=== PATIENT | female | born 1965 | race Caucasian/White ===

== ENCOUNTER 2023-03-20 15:06 | Outpatient (REF) | payer MEDICARE, SELFPAY | END 2023-03-20 15:07 | disposition home or self-care (01) | LOC: HO.SH 15:06 | PROVIDERS: Visit Provider Internal Medicine | DX: Z01.118 Encounter for examination of ears and hearing with other abnormal findings (principal); H90.3 Sensorineural hearing loss, bilateral | CPT/HCPCS: 92557; 92567 ==

== ENCOUNTER 2023-10-12 13:12 | Outpatient (AMB) | payer MEDICARE, SELFPAY ==
--- NOTE | 2023-10-12 13:25 | A.OFFPC_ITS ---
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 Agents' Records Clerk Required: No Accompanied by: Self / Same As Patient Allergies melatonin Allergy (Severe, Verified 10/12/23 13:34) Unconscious pregabalin Allergy (Severe, Verified 10/12/23 13:34) Vomiting doxycycline Allergy (Unknown, Verified 10/12/23 13:34) Vomiting Tobacco use date assessed: 10/12/23 Dental Screening Dental Screen Date: 10/12/23 Did you have a dental visit in the last 12 months?: Yes Did you have a dental problem in the last 6 months where you did not have access to dental care?: No Was dental information given to patient?: Patient has dentist HPI HPI Comments History of Present Illness Details The patient is a 58-year-old female with a past medical history of anxiety, migraines, hyperlipidemia, hypothyroid, rheumatoid arthritis, breast cancer presenting for follow-up Anxiety: She was started on Prozac last year. Tolerated it but stopped. 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 Not sleeping well Rheumatoid arthritis: Dr. Ventura in [place]. On Humira. Has tried Enbrel and simponi in the past. Increased lower back pain for past few months. Cramping, painful numbness in lower extremities in toes. Worse at night. Prior xray with loss of height, evidence of stenosis through rheumatology. Continue to have visible swellling of the legs and feet with fasciculations Hypothyroid: On levothyroxine 112 mcg daily. Continues to have multiple headaches per week. Using prn fioricet which she tries to avoid. MRI brain was normal. Willling to try aimovig or similar CV: In spironolactone. Heme-Onc: Status post bilateral mastectomy for right-sided lobular carcinoma with limited axillary exploration. She had positive margins on the right. Her surgeon recommended XRT, tamoxifen. Two thousand seven. Two thousand nine she had OVIDIO with BSO Sees tag maker ROS see HPI PHYSICAL EXAM: GENERAL: Alert and oriented x 3. NAD EYES: EOMI. Anicteric. HENT: Moist mucous membranes. No scleral icterus. No cervical lymphadenopathy. LUNGS: Clear to auscultation bilaterally. CARDIOVASCULAR: Regular rate and rhythm. No murmur. No JVD. ABDOMEN: Soft, non-tender +bs EXTREMITIES: No edema. Non-tender. SKIN: No rashes or lesions. Warm. NEUROLOGIC: No focal neurological deficits. CN II-XII grossly intact PSYCHIATRIC: Cooperative. Appropriate mood and affect [facility] Medical History (Updated 10/12/23 @ 14:58 by Shelley Banks MD) Breast cancer Sinusitis Rheumatoid arthritis Hypothyroidism Hyperlipidemia Migraine Chronic neck pain Chronic low back pain Acne Anxiety Surgical History (Updated 10/12/23 @ 13:53 by Marcella Adam CMA) Hx of BSO (bilateral salpingo-oophorectomy) History of total abdominal hysterectomy History of bilateral mastectomy Family History (Updated 10/12/23 @ 13:55 by Marcella Adam CMA) Father Alcoholism Hypertension Sister Depression Sister Alcoholism Social History (Updated 10/12/23 @ 13:45 by Marcella Adam CMA) Household Members: Spouse Housing: House Are you a primary acute care nurse practitioner to a significant other at home: No Do you presently have visiting nurse or other home services: No Alcohol intake: current Alcohol intake frequency: holidays/special occasions only Alcohol type: wine Patient Tobacco Use Status: Never used Tobacco e-Cigarette/Vaping Use: Never Used service: No Current occupational status: employed Current occupation: [employer] Current occupational exposures/hazards: No Sexual orientation: Straight/Heterosexual Gender identity: Female Cognitive needs: No Hearing needs: Yes (hearing concerns) Vision needs: Yes (sees eye doctor, vision changes) Questionnaire PHQ-9 Over the last 2 weeks, how often have you been bothered by any of the following problems? 1. Little interest or pleasure in doing things: not at all 2. Feeling down, depressed, or hopeless: not at all 3. Trouble falling or staying asleep, or sleeping too much: not at all 4. Feeling tired or having little energy: not at all 5. Poor appetite or overeating: not at all 6. Feeling bad about yourself - or that you are a failure or have let yourself or your family down: not at all 7. Trouble concentrating on things, such as reading the newspaper or watching television: not at all 8. Moving or speaking so slowly that other people could have noticed. Or the opposite - being so fidgety or restless that you have been moving around a lot more than usual: not at all 9. Thoughts that you would be better off or of hurting yourself in some way: not at all Total score: 0 Depression Screening Interpretation: Negative (neg) Depression Screening Done: Yes 41707 - PHQ-9 Billing: Yes Source: Developed by Drs. Rg Joya, Carrie Hernandez, David Braswell and colleagues, with an educational michelle from [employer]. Thrive Questionnaire Date Thrive assessed: 10/12/23 I am a: Patient What is your living situation today?: I have a steady place to live Within the past 12 months, did the food you bought not last and you didn't have the money to get more?: Never true Within the past 12 months, did you worry whether your food would run out before you got money to buy more?: Never true Do you have trouble paying for medicines?: No Do you have trouble getting transportation to medical appointments?: No Do you have trouble paying your heating and electricity bill?: No Do you have trouble taking care of your child, family member or friend?: No Do you have trouble with day-to-day activities such as bathing, preparing meals, shopping, managing finances, etc.?: No Are you currently unemployed and looking for a job?: No Are you interested in more education?: No Please select the resources that you would like help with: None Currently or been in a relationship where the following occur: No concerns reported THRIVE Score: 0 BRAXTON-7 AMB Questionnaire BRAXTON-7 Date BRAXTON - 7 assessed: 10/12/23 Feeling nervous, anxious, or on edge: 3 = Nearly every day Not being able to stop or control worryin = Nearly every day Worrying too much about different things: 3 = Nearly every day Trouble relaxin = Nearly every day Being so restless that it is hard to sit still: 3 = Nearly every day Becoming easily annoyed or irritable: 3 = Nearly every day Feeling afraid as if something awful might happen: 0 = Not at all Total BRAXTON-7 score (0-4 normal; 5-9 mild; 10-14 moderate; 15-21 severe): 18 Source: Developed by Drs. Rg Joya, Carrie Hernandez, David Braswell and colleagues, with an educational michelle from [employer]. Physical exam (Primary Care) Vital Signs: Last Vital Signs Pulse 68 10/12/23 13:26 Resp 13 10/12/23 13:26 BP 124/72 10/12/23 13:26 Pulse Ox 93 10/12/23 13:26 Oxygen Delivery Method Room Air 10/12/23 13:26 BMI result Body Mass Index 24.2 Tobacco/Smoking Status: Tobacco use Status Tobacco use date assessed 10/12/23 10/12/23 13:45 Patient Tobacco Use Status Never used Tobacco 10/12/23 13:45 e-Cigarette/Vaping Use Never Used 10/12/23 13:45 PHQ-9: PHQ-9 Score PHQ-9: Total score 0 10/12/23 13:45 Depression Screening Interpretation: Negative (neg) Thrive Assessment: Date of Thrive Assessment Date Thrive assessed 10/12/23 10/12/23 13:45 Currently or been in a relationship where the following occur: No concerns reported Assessment and Plan Assessment & Plan (1) Hyperlipidemia: Code(s): E78.5 - Hyperlipidemia, unspecified Qualifiers: Hyperlipidemia type: pure hypercholesterolemia Qualified Code(s): E78.00 - Pure hypercholesterolemia, unspecified Plan: Monitor labs. 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 xray changes. MRI ordered (5) Weight gain: Code(s): R63.5 - Abnormal weight gain Plan: demetrius sent Orders: Orders Complete Blood Count Auto Diff Today E03.9 - Hypothyroidism, unspecified, E78.5 - Hyperlipidemia, unspecified, R25.2 - Cramp and spasm, Z13.0 - Encounter for screening for diseases of the blood and blood-forming organs and certain disorders involving the immune mechanism Comprehensive Met. Panel Today E03.9 - Hypothyroidism, unspecified, E78.5 - Hyperlipidemia, unspecified, R25.2 - Cramp and spasm, Z13.0 - Encounter for screening for diseases of the blood and blood-forming organs and certain disorders involving the immune mechanism Magnesium Today E03.9 - Hypothyroidism, unspecified, E78.5 - Hyperlipidemia, unspecified, R25.2 - Cramp and spasm, Z13.0 - Encounter for screening for diseases of the blood and blood-forming organs and certain disorders involving the immune mechanism Hemoglobin A1c Today E03.9 - Hypothyroidism, unspecified, E78.5 - Hyperlipidemia, unspecified, R25.2 - Cramp and spasm, Z13.0 - Encounter for screening for diseases of the blood and blood-forming organs and certain disorders involving the immune mechanism MR lumbar spine wo con Today M54.16 - Radiculopathy, lumbar region, R25.2 - Cramp and spasm TSH reflex Free T4 Today E03.9 - Hypothyroidism, unspecified, E78.5 - Hyperlipidemia, unspecified, R25.2 - Cramp and spasm, Z13.0 - Encounter for screening for diseases of the blood and blood-forming organs and certain disorders involving the immune mechanism Vitamin B12 and Folate Today E03.9 - Hypothyroidism, unspecified, E78.5 - Hyperlipidemia, unspecified, R25.2 - Cramp and spasm, Z13.0 - Encounter for screening for diseases of the blood and blood-forming organs and certain disorders involving the immune mechanism Medications: New zolpidem (Ambien) 5 mg PO BEDTIME 30 tabs 3RF zpztntsfdm-tqpsmdhydtlcm-chnq 50-325-40 mg 1 cap PO Q4-6H 28 days PRN 84 caps 0RF headache spironolactone 50 mg PO DAILY 90 tabs 3RF erenumab-aooe (Aimovig Autoinjector) 70 mg subcut .monthly 3 mL 3RF G43.909 - Migraine, unspecified, not intractable, without status migrainosus semaglutide (weight loss) (Demetrius) administer weeks 1 through 4 of therapy 0.25 mg (0.5 mL) subcut QWEEK 2 mL 0RF E78.00 - Pure hypercholesterolemia, unspecified, R63.5 - Abnormal weight gain levothyroxine 112 mcg PO DAILY 90 caps 3RF Refilled acyclovir 400 mg PO TID 5 days PRN 90 tabs 1RF cold sore Coding Level of Care Code Est Pt Level 5 (58762) Diagnoses Pure hypercholesterolemia E78.00 Hyperlipidemia type: pure hypercholesterolemia Rheumatoid arthritis involving multiple sites with positive rheumatoid factor M05.79 Rheumatoid arthritis location: multiple sites Rheumatoid factor presence: with rheumatoid factor 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
[2023-10-12 13:26] VITALS: BP 124/72; PULSE 68; RESP 13; O2SAT 93; BMI 24.2
== END 2023-10-12 14:28 | disposition home or self-care (01) ==
PROVIDERS: Visit Provider Internal Medicine
DX: E78.00 Pure hypercholesterolemia, unspecified (principal); M05.79 Rheumatoid arthritis with rheumatoid factor of multiple sites without organ or systems involvement; E06.3 Autoimmune thyroiditis; M54.16 Radiculopathy, lumbar region; R63.5 Abnormal weight gain
CPT/HCPCS: 99214

== ENCOUNTER 2023-10-12 14:38 | Outpatient (REF) | payer MEDICARE, SELFPAY ==
[2023-10-12 17:30] LABS: MANUAL DIFF FLAG NO
[2023-10-12 17:34] LABS: Basophils Absolute Auto 0.1 X10*3/uL (0.0-0.2); Basophils Percent Auto 1.3 % (0-2); Eosinophils Absolute Auto 0.3 X10*3/uL (0.0-0.4); Eosinophils Percent Auto 3.4 % (0-4); Hematocrit 38.1 % (37.0-47.0); Hemoglobin 12.8 g/dl (12.0-16.0); Imm Gran Abs Auto 0.01 X10*3/uL (0.00-0.03); Imm Gran Pct Auto 0.1 % (0.0-0.4); Lymphocytes Percent Auto 36.7 % (20-40); Mean Corpuscular HGB Conc 33.6 g/dl (31.0-35.0); Mean Corpuscular Hemoglobin 31.2 pg (27.0-33.0); Mean Corpuscular Volume 92.9 fL (80.0-98.0); Mean Platelet Volume 10.3 fL (9.4-12.3); Monocytes Absolute Auto 0.7 X10*3/uL (0.1-1.2); Monocytes Percent Auto 7.9 % (2-11); Neutrophils Absolute Auto 4.2 x10*3/uL (2.0-8.3); Neutrophils Percent Auto 50.6 % (45-73); Platelet Count 313 X10*3/uL (160-400); Red Cell Distribution Width 12.6 % (11.0-16.0); White Blood Count 8.3 X10*3/uL (4.8-10.8)
[2023-10-12 17:48] LABS: Estimated Average Glucose 103 mg/dL; Hemoglobin A1c % 5.2 % (<6.0)
[2023-10-12 17:52] LABS: Alanine Aminotransferase 15 U/L (0-31); Albumin Level 4.2 g/dL (3.5-5.0); Alkaline Phosphatase 77 U/L (39-117); Anion Gap 10 (12-20); Aspartate Amino Transferase 17 U/L (5-31); Bilirubin Total 0.1 mg/dL (0.0-1.0); Blood Urea Nitrogen 19 mg/dL (9-16); Calcium 9.3 mg/dL (8.4-10.2); Carbon Dioxide 28 mmol/L (22-29); Chloride 105 mmol/L (96-108); Estimated Glomerular Filt Rate > 60; Glucose Random 94 mg/dL (60-115); Magnesium 2.1 mg/dL (1.6-2.6); Potassium 4.2 mmol/L (3.3-5.1); Sodium 139 mmol/L (135-145); Total Protein 7.2 g/dL (6.5-8.0)
[2023-10-12 18:10] LABS: TSH reflex Free T4 6.07 uIU/mL (0.32-4.0)
[2023-10-12 18:24] LABS: Folate 10.9 ng/mL (> or = 4.0); Vitamin B12 290 pg/mL (200-900)
[2023-10-12 18:51] LABS: Free T4 (Free Thyroxine) 0.77 ng/dL (0.71-1.85)
== END 2023-10-12 14:39 | disposition home or self-care (01) ==
LOC: HO.WFDLDS 14:38
PROVIDERS: Visit Provider Internal Medicine
DX: Z13.0 Encounter for screening for diseases of the blood and blood-forming organs and certain disorders involving the immune mechanism (principal); Z13.1 Encounter for screening for diabetes mellitus; E03.9 Hypothyroidism, unspecified; E78.5 Hyperlipidemia, unspecified; R25.2 Cramp and spasm
CPT/HCPCS: 36415; 80053; 82607; 82746; 83036; 83735; 84439; 84443; 85025

== ENCOUNTER 2024-03-21 08:51 | Outpatient (AMB) | payer OTHER, SELFPAY ==
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
[2024-03-21 09:10] VITALS: BP 100/74; PULSE 75; RESP 14; O2SAT 98; BMI 26.2
--- OUTSIDE RECORDS SUMMARY | 2024-03-21 09:11 | XMS_ITS | Clinical Summary ---
Author Organization [facility] Address [address] [place] [address] Care Team Providers Care Wedger Machine Name Role Phone Ivania Bello Primary Care Provider [phone] Medications Medication Sig Dispensed Refills Start Date End Date Status acyclovir (ZOVIRAX) 400 mg tabletIndications:Recu rrent cold sores TAKE 1 TABLET BY MOUTH 3 TIMES A DAY 15 tablet 1 06/16/2022 Active spironolactone (ALDACTONE) 50 MG tabletIndications:Hype rtension, unspecified type TAKE 1 TABLET BY MOUTH EVERY DAY 30 tablet 1 08/07/2022 Active levothyroxine (SYNTHROID, LEVOTHROID) 112 MCG tabletIndications:Hypo thyroidism, unspecified type TAKE 1 TABLET BY MOUTH EVERY DAY 90 tablet 11/13/2022 Active Social History Tobacco Use Types Packs/Day Years Used Date Smoking Tobacco: Never Assessed Sex and Gender Information Value Date Recorded Sex Assigned at Not on file Gender Identity Not on file Sexual Orientation Not on file Plan of Treatment Health Maintenance Due Date Last Done Comments Hepatitis C Virus Screening 1965 HIV Screening 07/18/1976 DTaP/Tdap/Td Vaccines (1 - Tdap) 07/18/1982 Pneumococcal Vaccines 50+ (1 of 1 - PCV) 07/18/2013 Zoster (Shingles) Vaccine (1 of 2) 07/18/2013 COVID-19 Vaccine (2023-2 5 season) 2023 RSV Vaccine 60 years and old er and Patients (1 - 1-dose 75+ series) 07/18/2038 Hepatitis B Vaccines Aged Out No long er eligible based on patient's age to complete this topic Pneumococcal Vaccine: Pediat mikie (0-5 Years) and At-Risk Patients (6 to 49 Years) Aged Out No longer eligible b ased on patient's age to complete this topic Care Teams Wedger Machine Relationship Specialty Start Date End Date Ivania Bello DO [address] [address] PCP - General
--- OUTSIDE RECORDS SUMMARY | 2024-03-21 09:11 | XMS_ITS | Encounter Summary ---
Author Organization [facility] Address [address] [place] [address] Care Team Providers Care Chemical Engraver Name Role Phone Ivania Bello DO Primary Care Provider [phone] Reason for Visit * Reason Comments Medication Refill Encounter Details Date Type Department Care Team (Late st Contact Info) Description 07/11/2022 Refill [facility] Department of Internal Medicine [address] 1st [place] [phone] Ivania Bello DO [address] [place] [address] Recurrent cold sores Social History Tobacco Use Types Packs/Day Years Used Date Smoking Tobacco: Never Assessed Sex and Gender Information Value Date Recorded Sex Assigned at Not on file Gender Identity Not on file Sexual Orientation Not on file documented as of this encounter Plan of Treatment Not on file documented as of this encounter Visit Diagnoses Diagnosis Recurrent cold sores Herpes simplex without mention of complication documented in this encounter Care Teams Chemical Engraver Relationship Specialty Start Date End Date Ivania Bello DO [address] [place] [address] PCP - General documented as of this encounter
--- OUTSIDE RECORDS SUMMARY | 2024-03-21 09:11 | XMS_ITS | Encounter Summary ---
Author Organization [facility] Address [address] [place] [address] Care Team Providers Care Crystal Flat Grinder Name Role Phone Ivania Bello DO Primary Care Provider [phone] Reason for Visit * Reason Comments Medication Refill Encounter Details Date Type Department Care Team (Late st Contact Info) Description 11/05/2022 Refill [facility] Department of Internal Medicine [address] 1st [place] [phone] Ivania Bello DO [address] [place] [address] Hypertension, unspecified type Social History Tobacco Use Types Packs/Day Years Used Date Smoking Tobacco: Never Assessed Sex and Gender Information Value Date Recorded Sex Assigned at Not on file Gender Identity Not on file Sexual Orientation Not on file documented as of this encounter Plan of Treatment Not on file documented as of this encounter Visit Diagnoses Diagnosis Hypertension, unspecified type documented in this encounter Care Teams Crystal Flat Grinder Relationship Specialty Start Date End Date Ivania Bello DO [address] [place] [address] PCP - General documented as of this encounter
== END 2024-03-21 09:44 | disposition home or self-care (01) ==
PROVIDERS: PCP Internal Medicine; Visit Provider Internal Medicine
DX: E06.3 Autoimmune thyroiditis (principal); M54.16 Radiculopathy, lumbar region; F41.9 Anxiety disorder, unspecified

== ENCOUNTER → 2024-03-21 08:51 | Outpatient (BNVA) | payer OTHER, SELFPAY | PROVIDERS: PCP Internal Medicine; Visit Provider Internal Medicine | DX: E06.3 Autoimmune thyroiditis (principal); R63.5 Abnormal weight gain; M54.16 Radiculopathy, lumbar region; F41.9 Anxiety disorder, unspecified; Z51.81 Encounter for therapeutic drug level monitoring | CPT/HCPCS: 96127 ==

== ENCOUNTER 2024-03-21 09:58 | Outpatient (REF) | payer OTHER, SELFPAY ==
--- OUTSIDE RECORDS SUMMARY | 2024-03-21 10:43 | XMS_ITS | Clinical Summary ---
Author Organization [facility] Address [address] [place] [address] Care Team Providers Care Kosher Butcher Name Role Phone Ivania Bello Primary Care Provider [phone] Medications Medication Sig Dispensed Refills Start Date [...] age to complete this topic Care Teams Kosher Butcher Relationship Specialty Start Date End Date Ivania Bello DO [address] [address] PCP - General
--- OUTSIDE RECORDS SUMMARY | 2024-03-21 10:43 | XMS_ITS | Encounter Summary ---
Author Organization [facility] Address [address] [place] [address] Care Team Providers Care Philosophy Faculty Member Name Role Phone Ivania Bello DO Primary Care Provider [phone] Reason for Visit * Reason Comments Medication Refill Encounter Details Date Type Department Care Team (Late st Contact Info) Description 11/05/2022 Refill [facility] Department of Internal Medicine [address] 1st [place] [phone] Ivania Bello DO [address] [place] [address] Hypertension, unspecified type Social History Tobacco Use [...] type documented in this encounter Care Teams Philosophy Faculty Member Relationship Specialty Start Date End Date Ivania Bello DO [address] [place] [address] PCP - General documented as of this encounter
--- OUTSIDE RECORDS SUMMARY | 2024-03-21 10:43 | XMS_ITS | Encounter Summary ---
Author Organization [facility] Address [address] [place] [address] Care Team Providers Care Technical Designer Name Role Phone Ivania Bello DO Primary Care Provider [phone] Reason for Visit * Reason Comments Medication Refill Encounter Details Date Type Department Care Team (Late st Contact Info) Description 07/11/2022 Refill [facility] Department of Internal Medicine [address] [place] [phone] Ivania Bello DO [address] [place] [address] Recurrent cold sores Social History Tobacco Use [...] complication documented in this encounter Care Teams Technical Designer Relationship Specialty Start Date End Date Ivania Bello DO [address] [place] [address] PCP - General documented as of this encounter
--- OUTSIDE RECORDS SUMMARY | 2024-03-21 10:43 | XMS_ITS | Data Portability ---
Author Organization [facility], [address] Address [address] [place] [address] Assessment Encounter Date Assessment Date Assessment LastModified by Organization Details LastModified Time 06/25/2023 06/25/2023 Refer to H&P. Tx for cellulitis with PCN for 10 days. Came today for continued symptoms. Exam finding c/w Paronychia i/s/o of ingrown toenail which was slightly clipped. Referral to podiatry placed. [email or web address] Not available 06/25/2023 18:21:23 Plan of Treatment Reminders Order Date Submit Date Provider Last Modified By Organization Details Last Modified Time Details Appointments None recorded. Lab None recorded. Referral store loss prevention manager referral - Ingrown toenail with infection. 2023 024 [email or web address] Not available 18:32:52 Procedures None recorded. Surgeries None recorded. Imaging None recorded. Medication Orders penicillin V potassium 500 mg tablet 2023 024 EUFEMIA [facility] #[id number], [address] [place], [address], 17:56:34 ibuprofen 800 mg tablet 2023 024 [email or web address] [facility] #[id number], [address] [place], [address], 4 18:47:32 cephalexin 500 mg capsule 2023 024 ATHENAFAX [facility][id number], [address] [place], [address], 18:19:37 Patient TargetsNo targets recorded. Patient Instructions Encounter Date Encounter Id Patient Instructions Last Modified By Organization Details Last Modified Time 06/06/2023 [id number] Pt. advised to g o to ER if current Signs and symptoms worsen or if she has new onset s/s as discussed .pt advised to follow up with PCP if s/s do not resolve .May need Podiatry referral . [email or web address] Not available 06/06/2023 19:41:42 06/25/2023 [id number] foot pain: care instructions [email or web address] Not available 06/25/2023 18:13:15 You were seen today for toe pain. You ingrown toenail with infection. Recommendation as below: - Keflex 500 mg three times a day for 7 days. - you have a referral to Podiatry - Return if worsening symptoms or lack of improvement. [email or web address] Not available 06/25/2023 18:14:39 Reason for Referral Field Representative/Health Education Referral for Paro nychia of toe of left foot due to ingrown toenail Ingrown toenail with infection. Referring Physician: Vannessa Leon, Urgent Care, Encounter Date: 06/25/2023 Problems Name Problem SNOMED Code Status Onset Date Resolution Date Notes Provider Name and Address Organization Details Recorded Time Paronychia of toe of left foot due to ingrown toenail 467593807 Active 024 VANNESSA LEON MD [address] [place] [address] [facility] [place], [address] [facility] [place] - [facility] 18:12:59 Problem Notes None recorded. Procedures Surgical History Date Name Laterality Status Provider Name and Address Organization Details Recorded Time 06/06/2023 CAST SHOE completed Marielle Di PA - [facility] 06/06/2023 19:47:07 Imaging Results None recorded. Procedure Notes None recorded. Medical Equipment None Reported. Allergies Allergen ID Allergen Name Allergen Category Reaction Reaction Severity Criticality Documentation Date Start Date Code Code System Note Provider Name and Address Organization Details Recorded Time 258485 Lyrica medicatio n Not available Not available Not available 06/06/2023 11045 1 RxNorm Marielle Di co[place], [place] - [facility] 4 18:07:30 020550 Tylox medicatio n Not available Not available Not available 06/06/2023 15617 5 RxNorm Marielle Sevilla coleen [place] - [facility] 4 18:07:34 Medications Name Sig Start Date Stop Date Status Note LastModified by Organization Details LastModified Time ibuprofen 800 mg tablet Take 1 tablet twice a day by oral route as directed for 10 days, for celluliti s pain. 2023 active Not Available Not Available Not Avai lable penicillin V potassium 500 mg tablet Take 1 tablet every 8 hours by oral route as directed for 10 days, for celluliti s left foot. 06/24 completed Not Available Not Available Not Available cephalexin 500 mg capsule Take 1 capsule every 8 hours by oral route for 7 days. 2023 active Not Available Not Available Not Avai lable butabarbita l 100 mg tablet Take by oral route. 06/05 completed Not Available Not Available Not Available meclizine active Not Available Not Marita ilable Not Available levothyroxi ne 100 mcg capsule Take 1 capsule every day by oral route. active Not Available Not Available No t Available Vitals Date Recorded Body height Body mass index (BMI) Body weight Oxygen saturation Oxygen saturation in Arterial blood by Pulse oximetry Heart rate Respiratory rate Body temperature Systolic blood pressure Diastolic blood pressure Provider Name and Address Organization Details Last Updated DateTime 4 162.56 cm 22.3 kg/m2 38247.0 1 g 98 % 98 % 72 /min 18 /min 98.3 [degF] 102 mm[Hg] 60 mm[Hg] Marielle Sevilla PA - [facility] 4 18:11:36 Date Recorded Body height Body mass index (BMI) Body weight Oxygen saturation Oxygen saturation in Arterial blood by Pulse oximetry Heart rate Respiratory rate Body temperature Systolic blood pressure Diastolic blood pressure Provider Name and Address Organization Details Last Updated DateTime 4 162.56 cm 22.3 kg/m2 97427.0 1 g 100 % 100 % 80 /min 16 /min 98.4 [degF] 98 mm[Hg] 62 mm[Hg] Zara [place] - [facility] 17:55:04 Social History Question Answer Notes LastModified by Organizat ion Details LastModified Time Tobacco Smoking Status Never Smoker Marielle [facility] 06/06/2023 18:10:06 What Is Your Level Of Alcohol Consumption? Occasional Information not available 06/06/2023 Have You Had A Flu Shot This Season? Yes Information not available 06/25/2023 Have You Had Direct Contact, Or Contact During Intimacy, With Monkeypox Rash, Scabs, Or Body Fluids From A Person With Monkeypox? No Information not available 06/06/2023 What Was The Date Of Your Most Recent Tobacco Screening? 06/25/2023 Information not available 06/25/2023 Do You Use Any Illicit Or Recreational Drugs? No Information not available 06/06/2023 Have You Recently Traveled Abroad? No Information not available 06/06/2023 Do You Or Have You Ever Used Any Other Forms Of Tobacco Or Nicotine? No Information not available 06/06/2023 Sex: Unknown Functional Status None recorded. Mental Status None recorded. Family History Relationship Description Onset Age of this Age Resolved Age Notes LastModified by Organization Details LastModified Time Father No current problems or disability Not available 06/05 18:09:22 Mother No current problems or disability Not available 06/05 18:09:22 Medical History No medical history recorded. Gynecological History Statement/Question Response Is there any chance of ? No Obstetrics History GPAL:G 0 P 0 0 0 0 Past Encounters Encounter ID Performer Location Encounter Start Date Encounter Closed Date Diagnosis/Indication Diagnosis SNOMED-CT Code Diagnosis ICD10 Code Diagnosis [place] [id number] [place] [address] [address] 06/06/2023 18:03:37 06/07/2023 11:37:50 Cellulitis of left foot 8278379406 5327825 L03.116 [id number] [place] [address] [address] 06/25/2023 17:42:09 06/25/2023 18:16:23 Paronychia of toe of left foot due to ingrown toenail 770223143 L60.0 Health Concerns Section Related Observation LastModified by Organization Detai ls LastModified Time None Recorded Concern Status LastModified by Organization Details LastModified Time None Recorded Advance Directives Directive None Recorded Payers Encounter Date Sequence Insurance Name Policy Number Policy King Covered Member ID King Member ID Guarantor Name 06/06/2023 1 MEDICARE [place]: [facility] Tomasa Ross [id number] Tomasa Ross 06/25/2023 1 [place]IC[place]: [facility] Tomasa Ross [id number] Tomasa Ross Notes Date Note Type Note Provider Name and Address Organization Details Recorded Time 4 text/html ToesReported bypatient.source of patient informationIncreasing redness and swelling left great Toe after trimming nail short. with accidental injury to skin. Location:dorsal Quality:aching; burning; worsening Severity:moderate; pain level 6/10 Duration:4 days Timing:acute Context:skin injury Alleviating Factors:rest; elevation; limited weight bearing Aggravating Factors:sitting; standing; walking Associated Symptoms:no tingling; no catching/locking; no popping/clicking; no fever; no chills;swelling;redness;wa rmth Previous Surgery:none Prior Imaging:none Previous Injections:none Previous PT:none Joslyn Trinidad MD [address] [place], [address], [place] - [facility] 06/06/2023 19:50:05 4 text/html Foot/Ankle UCReported bypatient.Notes:Left toe ingrown toenail with cellulitis. Tx with 10 day of PCN on 06/05 with improvement. Has been soaking warm Epsom salt with temporary relief. Notice purlent drainage. VANNESSA LEON MD [address] [place], [address], [place] - [facility] 06/25/2023 18:21:44 OBGyn Episode No OBEpisode recorded.
[2024-03-21 12:36] LABS: Alanine Aminotransferase 33 U/L (0-31); Albumin Level 4.5 g/dL (3.5-5.0); Alkaline Phosphatase 83 U/L (39-117); Anion Gap 10 (12-20); Aspartate Amino Transferase 26 U/L (5-31); Bilirubin Total 0.4 mg/dL (0.0-1.0); Blood Urea Nitrogen 16 mg/dL (9-16); Calcium 9.3 mg/dL (8.4-10.2); Carbon Dioxide 27 mmol/L (22-29); Chloride 106 mmol/L (96-108); Estimated Glomerular Filt Rate > 60; Glucose Random 76 mg/dL (60-115); Potassium 4.4 mmol/L (3.3-5.1); Sodium 139 mmol/L (135-145); Total Protein 7.9 g/dL (6.5-8.0)
[2024-03-21 14:20] LABS: Free T4 (Free Thyroxine) 0.73 ng/dL (0.71-1.85)
== END 2024-03-21 09:59 | disposition home or self-care (01) ==
LOC: HO.WFDLDS 09:58
PROVIDERS: Visit Provider Internal Medicine
DX: E06.3 Autoimmune thyroiditis (principal); R63.5 Abnormal weight gain
CPT/HCPCS: 36415; 80053; 84439; 84443

== ENCOUNTER 2024-05-20 08:53 | Outpatient (AMB) | payer OTHER, SELFPAY ==
--- NOTE | 2024-05-20 09:25 | MHC.PC.OV ---
Vital Signs 05/20/24 09:28 Height 5 ft 4 in Weight 155 lb BMI 26.6 BP 132/88 Blood Pressure Location Lt brachial Position Sitting Respiration 14 Pulse 73 Pulse Source Pulse Oximeter Pulse Oximetry (%) 98 Oxygen Delivery Method Room Air Intake Visit Reasons: [facility] for Demetrius. Intake Note: Discuss weight loss antibiotic. Has a cut in nose that is bothersome. Left sided hip pain. Cracker And Cookie Machine Operator Required: No Allergies diazepam [From Valium] Allergy (Severe, Verified 05/20/24 09:26) Headache melatonin Allergy (Severe, Verified 05/20/24 09:26) Unconscious pregabalin Allergy (Severe, Verified 05/20/24 09:26) Vomiting doxycycline Allergy (Unknown, Verified 05/20/24 09:26) Vomiting Medication List - Last Reconciled 05/20/24 by Shelley Banks MD acyclovir 400 mg PO TID adalimumab (Humira Pen) 40 mg subcut QWEEK otldaydujk-bwqmemdgeafir-ucbm 50-325-40 mg 1 cap PO Q4-6H PRN levothyroxine 125 mcg PO DAILY meclizine 25 mg PO DAILY PRN phentermine 37.5 mg PO DAILY sertraline 25 mg PO DAILY spironolactone 50 mg PO DAILY Tobacco use date assessed: 03/21/24 Dental Screening Dental Screen Date: 10/12/23 HPI HPI Comments History of Present Illness Details The patient is a 58-year-old female with a past medical history of anxiety, migraines, hyperlipidemia, hypothyroid, rheumatoid arthritis, breast cancer presenting for follow-up Anxiety: Did not start the sertraline. Previously on Prozac. Tolerated it but stopped. 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 Not sleeping well. Anxiety levels are even greater than previously Rheumatoid arthritis: Dr. Ventura in [place]. On Humira. Has tried Enbrel and simponi in the past. Increased lower back pain for past few months. Cramping, painful numbness in lower extremities in toes. Worse at night. Prior xray with loss of height, evidence of stenosis through rheumatology. Continue to have visible swellling of the legs and feet with fasciculations Hypothyroid: On levothyroxine 112 mcg daily. Continues to have multiple headaches per week. Using prn fioricet which she tries to avoid. MRI brain was normal. CV: On spironolactone. Denies chest pain, palpitations. Has gained weight. Exercising and eating health but has not been able to lose weight over the past six months Heme-Onc: Status post bilateral mastectomy for right-sided lobular carcinoma with limited axillary exploration. She had positive margins on the right. Her surgeon recommended XRT, tamoxifen-2006. 2008 she had OVIDIO with BSO Sees fleet maintenance foreman ROS see HPI PHYSICAL EXAM: GENERAL: Alert and oriented x 3. NAD EYES: EOMI. Anicteric. HENT: Moist mucous membranes. No scleral icterus. LUNGS: Clear to auscultation bilaterally. CARDIOVASCULAR: Regular rate and rhythm. No murmur. No JVD. ABDOMEN: Soft, non-tender +bs EXTREMITIES: No edema. Non-tender. SKIN: No rashes or lesions. Warm. NEUROLOGIC: No focal neurological deficits. CN II-XII grossly intact PSYCHIATRIC: Cooperative. Appropriate mood and affect PFSH Medical History Breast cancer Sinusitis Rheumatoid arthritis Hypothyroidism Hyperlipidemia Migraine Chronic neck pain Chronic low back pain Acne Anxiety Surgical History Hx of BSO (bilateral salpingo-oophorectomy) History of total abdominal hysterectomy History of bilateral mastectomy Family History Father Alcoholism Hypertension Sister Depression Sister Alcoholism Social History Household Members: Spouse Housing: House Are you a primary animal daycare provider to a significant other at home: No Do you presently have visiting nurse or other home services: No Alcohol intake: current Alcohol intake frequency: holidays/special occasions only Alcohol type: wine Patient Tobacco Use Status: Never used Tobacco e-Cigarette/Vaping Use: Never Used service: No Current occupational status: employed Current occupation: [employer] Current occupational exposures/hazards: No Sexual orientation: Straight/Heterosexual Gender identity: Female Cognitive needs: No Hearing needs: Yes (hearing concerns) Vision needs: Yes (sees eye doctor, vision changes) Questionnaire Thrive Questionnaire Date Thrive assessed: 01/31/25 I am a: Patient What is your living situation today?: I have a steady place to live Within the past 12 months, did the food you bought not last and you didn't have the money to get more?: Never true Within the past 12 months, did you worry whether your food would run out before you got money to buy more?: Never true Do you have trouble paying for medicines?: Yes Do you have trouble getting transportation to medical appointments?: No Do you have trouble paying your heating and electricity bill?: No Do you have trouble taking care of your child, family member or friend?: I choose not to answer this question Do you have trouble with day-to-day activities such as bathing, preparing meals, shopping, managing finances, etc.?: Yes Are you currently unemployed and looking for a job?: No Are you interested in more education?: No Please select the resources that you would like help with: None Currently or been in a relationship where the following occur: I choose not to answer THRIVE Score: 0 BRAXTON-7 AMB Questionnaire BRAXTON-7 Date BRAXTON - 7 assessed: 03/21/24 Source: Developed by Drs. Rg Joya, Carrie Hernandez, David Braswell and colleagues, with an educational michelle from [employer]. Physical exam (Primary Care) Vital Signs: Last Vital Signs Pulse 73 05/20/24 09:28 Resp 14 05/20/24 09:28 BP 132/88 05/20/24 09:28 Pulse Ox 98 05/20/24 09:28 Oxygen Delivery Method Room Air 05/20/24 09:28 BMI result Body Mass Index 26.6 Tobacco/Smoking Status: Tobacco use Status Tobacco use date assessed 03/21/24 05/20/24 09:33 Patient Tobacco Use Status Never used Tobacco 05/20/24 09:33 e-Cigarette/Vaping Use Never Used 05/20/24 09:33 Thrive Assessment: Date of Thrive Assessment Date Thrive assessed 03/14/24 05/20/24 09:33 Currently or been in a relationship where the following occur: I choose not to answer Coding Level of Care Code Est Pt Level 4 (71851) Diagnoses Overweight (BMI 25.0-29.9) E66.3 Rheumatoid arthritis involving multiple sites with positive rheumatoid factor M05.79 Rheumatoid arthritis location: multiple sites Rheumatoid factor presence: with rheumatoid factor 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 type: due to Nicky's thyroiditis Assessment & Plan Assessment & Plan (1) Overweight (BMI 25.0-29.9): Code(s): E66.3 - Overweight Category: Medical (2) Rheumatoid arthritis: Code(s): M06.9 - Rheumatoid arthritis, unspecified Category: Medical Qualifiers: Rheumatoid arthritis location: multiple sites Rheumatoid factor presence: with rheumatoid factor Qualified Code(s): M05.79 - Rheumatoid arthritis with rheumatoid factor of multiple sites without organ or systems involvement (3) Hypothyroidism: Code(s): E03.9 - Hypothyroidism, unspecified Category: Medical Qualifiers: Hypothyroidism type: due to Nicky's thyroiditis Qualified Code(s): E06.3 - Autoimmune thyroiditis Plan weight gain-trial phentermine Recommended starting the zoloft Hypothyroid-monitor TSH Orders: Orders Lipid Panel Today E78.00 - Pure hypercholesterolemia, unspecified, Z83.3 - Family history of diabetes mellitus Hemoglobin A1c Today E78.00 - Pure hypercholesterolemia, unspecified, Z83.3 - Family history of diabetes mellitus Medications: New phentermine must administer 30 minutes before or 1-2 hours after breakfast 37.5 mg PO DAILY 60 caps 3RF E66.3 - Overweight Refilled jndfvxioiv-fgznqnkmjwfcn-cikt 50-325-40 mg 1 cap PO Q4-6H PRN 112 caps 1RF pain G43.909 - Migraine, unspecified, not intractable, without status migrainosus
[2024-05-20 09:28] VITALS: BP 132/88; PULSE 73; RESP 14; O2SAT 98; BMI 26.6
--- OUTSIDE RECORDS SUMMARY | 2024-05-20 09:30 | XMS_ITS | Clinical Summary ---
Author Organization [facility] Address [address] [place] [address] Care Team Providers Care Water And Sewer Systems Superintendent Name Role Phone Ivania Bello Primary Care Provider [phone] Medications Medication Sig Dispensed Refills Start Date [...] Vaccine (1 of 2) 07/18/2013 COVID-19 Vaccine ( - 2023-2 5 season) 2023 RSV Vaccine 58 years [...] age to complete this topic Care Teams Water And Sewer Systems Superintendent Relationship Specialty Start Date End Date Ivania Bello DO [address] [address] PCP - General
--- OUTSIDE RECORDS SUMMARY | 2024-05-20 09:30 | XMS_ITS | Encounter Summary ---
Author Organization [facility] Address [address] [place] [address] Care Team Providers Care Laundry Operator Wash Room Name Role Phone Ivania Bello DO Primary Care Provider [phone] Reason for Visit * Reason Comments Medication Refill Encounter Details Date Type Department Care Team (Late st Contact Info) Description 11/05/2022 Refill [facility] Department of Internal Medicine [address] [place] [phone] Ivania Bello DO [address] [place], [place] [id number] Hypertension, unspecified type Social History Tobacco Use [...] type documented in this encounter Care Teams Laundry Operator Wash Room Relationship Specialty Start Date End Date Ivania Bello DO [address] [place] [address] PCP - General documented as of this encounter
--- OUTSIDE RECORDS SUMMARY | 2024-05-20 09:30 | XMS_ITS | Encounter Summary ---
Author Organization [facility] Address [address] [place] [address] Care Team Providers Care Thermal Intelligence Analyst Name Role Phone Ivania Bello DO Primary Care Provider [phone] Reason for Visit * Reason Comments Medication Refill Encounter Details Date Type Department Care Team (Late st Contact Info) Description 07/11/2022 Refill [facility] Department of Internal Medicine [address] [place] [phone] Ivania Bello DO [address] [place] [address] Recurrent cold sores Social History Tobacco Use [...] complication documented in this encounter Care Teams Thermal Intelligence Analyst Relationship Specialty Start Date End Date Ivania Bello DO [address] [place] [address] PCP - General documented as of this encounter
== END 2024-05-20 09:57 | disposition home or self-care (01) ==
LOC: HO.HMCFM 08:53
PROVIDERS: PCP Internal Medicine; Visit Provider Internal Medicine
DX: E66.3 Overweight (principal); M05.79 Rheumatoid arthritis with rheumatoid factor of multiple sites without organ or systems involvement; E06.3 Autoimmune thyroiditis

== ENCOUNTER 2024-05-20 10:24 | Outpatient (REF) | payer OTHER, SELFPAY ==
--- OUTSIDE RECORDS SUMMARY | 2024-05-20 12:23 | XMS_ITS | Clinical Summary ---
Author Organization [facility] Address [address] [place] [address] Care Team Providers Care Edge Bonder Name Role Phone Ivania Bello Primary Care Provider [phone] Medications Medication Sig Dispensed Refills Start Date [...] age to complete this topic Care Teams Edge Bonder Relationship Specialty Start Date End Date Ivania Bello DO [address] [address] PCP - General
--- OUTSIDE RECORDS SUMMARY | 2024-05-20 12:23 | XMS_ITS | Data Portability ---
Author Organization [facility], [address] Address [address] [place] [address] Assessment Encounter Date Assessment Date Assessment LastModified [...] Appointments None recorded. Lab None recorded. Referral bank manager referral - Ingrown toenail with infection. 2023 024 [email or web address] Not available 18:32:52 Procedures None recorded. Surgeries None recorded. Imaging None recorded. Medication Orders cephalexin 500 mg capsule 2023 024 ATHENAFAX [facility]/Pharmacy #[id number], [address] [place], [address], 4 18:19:37 penicillin V potassium 500 mg tablet 2023 024 EUFEMIA [facility]/Pharmacy #[id number], [address] [place], [address], 4 17:56:34 ibuprofen 800 mg tablet 2023 024 [email or web address] [facility]/Pharmacy #[id number], [address] [place], [address], 18:47:32 Patient TargetsNo targets recorded. Patient Instructions Encounter Date Encounter Id Patient Instructions Last Modified By Organization Details Last Modified Time 06/06/2023 [id number] Pt. advised to g o to ER if current Signs and symptoms worsen or if she has new onset s/s as discussed .pt advised to follow up with PCP if s/s do not resolve .May need Podiatry referral . [email or web address] Not available 06/06/2023 19:41:42 06/25/2023 [id number] foot pain: care instructions [email or web address] Not available 06/25/2023 18:13:15 You were seen today for toe pain. You ingrown toenail with infection. Recommendation as below: - Keflex 500 mg three times a day for 7 days. - you have a referral to Podiatry - Return if worsening symptoms or lack of improvement. [email or web address] Not available 06/25/2023 18:14:39 Reason for Referral Auto Radiator Specialist Referral for Paro nychia of toe of left foot due to ingrown toenail Ingrown toenail with infection. Referring Physician: Vannessa Leon, Urgent Care, Encounter Date: 06/25/2023 Problems Name Problem SNOMED Code Status Onset Date Resolution Date Notes Provider Name and Address Organization Details Recorded Time Paronychia of toe of left foot due to ingrown toenail 411080755 Active 024 VANNESSA LEON MD [address] [place] [address] [facility] [place], [address] [facility] [place] - [facility] 18:12:59 Problem Notes [...] Name and Address Organization Details Recorded Time 792686 Lyrica medicatio n Not available Not available Not available 06/06/2023 88949 1 Rx[facility] Marielle Di coleen, [place] - [facility] 4 18:07:30 [id number] Tylox medicatio n Not available Not available Not available 06/06/2023 82683 5 RxNorm Marielle Sevilla coleen [place] - [...] Updated DateTime 4 162.56 cm 22.3 kg/m2 21136.0 1 g 98 % 98 % 72 [...] Updated DateTime 4 162.56 cm 22.3 kg/m2 51648.0 1 g 100 % 100 % 80 [...] SNOMED-CT Code Diagnosis ICD10 Code Diagnosis Note [id number] [place] [address] [address] 06/06/2023 18:03:37 06/07/2023 11:37:50 Cellulitis of left foot [id number] 0979274 L03.116 [id number] [place]ANNESSA LEON [place] [address] [address] 06/25/2023 17:42:09 06/25/2023 18:16:23 Paronychia of toe of left foot due to ingrown toenail [id number] L60.0 Health Concerns Section Related Observation LastModified by Organization Detai ls LastModified Time None Recorded Concern Status LastModified by Organization Details LastModified Time None Recorded Advance Directives Directive None Recorded Payers Encounter Date Sequence Insurance Name Policy Number Policy King Covered Member ID King Member ID Guarantor Name 06/06/2023 1 [place] [facility] Tomasa Ross [id number] Tomasa Ross 06/25/2023 1 [place] [facility] Tomasa Ross [id number] Tomasa Ross Notes Date Note Type [...] Trinidad MD [address] [place], [address], [place] - [facility] 06/06/2023 19:50:05 4 text/html Foot/Ankle UCReported bypatient.Notes:Left toe ingrown toenail with cellulitis. Tx with 10 day of PCN on 06/05 with improvement. Has been soaking warm Epsom salt with temporary relief. Notice purlent drainage. VANNESSA LEON MD [address] [place], [address], [place] - [facility] 06/25/2023 18:21:44 OBGyn Episode No OBEpisode recorded.
--- OUTSIDE RECORDS SUMMARY | 2024-05-20 12:23 | XMS_ITS | Encounter Summary ---
Author Organization [facility] Address [address] [place] [address] Care Team Providers Care Vp Respiratory Name Role Phone Ivania Bello DO Primary Care Provider [phone] Reason for Visit * Reason Comments Medication Refill Encounter Details Date Type Department Care Team (Late st Contact Info) Description 11/05/2022 Refill [facility] Department of Internal Medicine [address] [place] [phone] Ivania Bello DO [address] [place], [place] [id number] Hypertension, unspecified type Social History Tobacco Use [...] type documented in this encounter Care Teams Vp Respiratory Relationship Specialty Start Date End Date Ivania Bello DO [address] [place] [address] PCP - General documented as of this encounter
--- OUTSIDE RECORDS SUMMARY | 2024-05-20 12:23 | XMS_ITS | Encounter Summary ---
Author Organization [facility] Address [address] [place] [address] Care Team Providers Care Logging Operations Inspector Name Role Phone Ivania Bello DO Primary Care Provider [phone] Reason for Visit * Reason Comments Medication Refill Encounter Details Date Type Department Care Team (Late st Contact Info) Description 07/11/2022 Refill [facility] Department of Internal Medicine [address] [place] [phone] Ivania Bello DO [address] [place] [id number] Recurrent cold sores Social History Tobacco Use [...] complication documented in this encounter Care Teams Logging Operations Inspector Relationship Specialty Start Date End Date Ivania Bello DO [address] [place] [address] PCP - General documented as of this encounter
[2024-05-20 14:29] LABS: Cholesterol 264 mg/dL (<200); HDL Cholesterol 61 mg/dL (>40); LDL Cholesterol Calculated 184 mg/dL (<100); Triglycerides 96 mg/dL (<150)
[2024-05-20 14:30] LABS: Estimated Average Glucose 105 mg/dL; Hemoglobin A1C 116.2295 umol/L; Hemoglobin A1c % 5.3 % (<6.0)
== END 2024-05-20 10:25 | disposition home or self-care (01) ==
LOC: HO.WFDLDS 10:24
PROVIDERS: Visit Provider Internal Medicine
DX: E78.00 Pure hypercholesterolemia, unspecified (principal); Z83.3 Family history of diabetes mellitus; Z13.1 Encounter for screening for diabetes mellitus
CPT/HCPCS: 36415; 80061; 83036

== ENCOUNTER 2024-11-04 11:19 | Outpatient (AMB) | payer OTHER, SELFPAY ==
--- NOTE | 2024-11-04 11:28 | A.OFFPC_ITS ---
Vital Signs 11/04/24 12:04 Height 5 ft 4 in Weight 130 lb 2 oz BMI 22.3 BP 108/68 Blood Pressure Location Rt brachial Position Sitting Respiration 12 Pulse 93 Pulse Source Pulse Oximeter Pulse Oximetry (%) 99 Oxygen Delivery Method Room Air Intake Visit Reasons: Anxious / rash Intake Note: Stress, breaking out with rash causing scarring. Favor Maker Required: No Allergies diazepam (From Valium) Allergy (Severe, Verified 11/04/24 12:05) Headache melatonin Allergy (Severe, Verified 11/04/24 12:05) Unconscious pregabalin Allergy (Severe, Verified 11/04/24 12:05) Vomiting doxycycline Allergy (Unknown, Verified 11/04/24 12:05) Vomiting Tobacco use date assessed: 11/04/24 Dental Screening Dental Screen Date: 11/04/24 Did you have a dental visit in the last 12 months?: Yes Did you have a dental problem in the last 6 months where you did not have access to dental care?: No Was dental information given to patient?: Patient has dentist HPI HPI Comments History of Present Illness Details The patient is a 58-year-old female with a past medical history of anxiety, migraines, hyperlipidemia, hypothyroid, rheumatoid arthritis, breast cancer presenting for follow-up Anxiety: she briefly tried sertraline no SE but thought she could handle things herself. Stress at work and home is high. Previously on Prozac. Tolerated it but stopped. 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 Not sleeping well. Difficulty sleeping. She is having facial twitches from stress and has rash at times.. Rheumatoid arthritis: Dr. Ventura in [place]. On generic Humira. Has tried Enbrel and simponi in the past. Small joint pain in the hands. Low back pain, Cramping, painful numbness in lower extremities in toes. Worse at night. Prior xray with loss of height, evidence of stenosis through rheumatology. Hypothyroid: On levothyroxine 112 mcg daily. Continues to have multiple headaches per week. Using prn fioricet which she tries to avoid. MRI brain was normal. CV: On spironolactone. Denies chest pain, palpitations. Exercising and eating health -has lost weight on phentermine Heme-Onc: Status post bilateral mastectomy for right-sided lobular carcinoma with limited axillary exploration. She had positive margins on the right. Her surgeon recommended XRT, tamoxifen-2006. 2008 she had OVIDIO with BSO Sees residential finish carpenter ROS see HPI PHYSICAL EXAM: GENERAL: Alert and oriented x 3. NAD EYES: EOMI. Anicteric. HENT: Moist mucous membranes. No scleral icterus. LUNGS: Clear to auscultation bilaterally. CARDIOVASCULAR: Regular rate and rhythm. No murmur. No JVD. ABDOMEN: Soft, non-tender +bs EXTREMITIES: No edema. Non-tender. SKIN: scattered rash. Warm. NEUROLOGIC: No focal neurological deficits. CN II-XII grossly intact PSYCHIATRIC: Cooperative. Appropriate mood and affect [facility] Medical History (Updated 11/04/24 @ 12:50 by Shelley Banks MD) Breast cancer Sinusitis Rheumatoid arthritis Hypothyroidism Hyperlipidemia Migraine Chronic neck pain Chronic low back pain Acne Anxiety Surgical History Hx of BSO (bilateral salpingo-oophorectomy) History of total abdominal hysterectomy History of bilateral mastectomy Family History Father Alcoholism Hypertension Sister Depression Sister Alcoholism Social History Household Members: Spouse Housing: House Are you a primary direct care specialist to a significant other at home: No Do you presently have visiting nurse or other home services: No 75 years or older and lives alone: No Alcohol intake: current Alcohol intake frequency: holidays/special occasions only Alcohol type: wine Patient Tobacco Use Status: Never used Tobacco e-Cigarette/Vaping Use: Never Used service: No Current occupational status: employed Current occupation: [employer] Current occupational exposures/hazards: No Sexual orientation: Straight/Heterosexual Gender identity: Female Cognitive needs: No Hearing needs: Yes (hearing concerns) Vision needs: Yes (sees eye doctor, vision changes) Questionnaire Thrive Questionnaire Date Thrive assessed: 03/14/24 I am a: Patient What is your living situation today?: I have a steady place to live Within the past 12 months, did the food you bought not last and you didn't have the money to get more?: Never true Within the past 12 months, did you worry whether your food would run out before you got money to buy more?: Never true Do you have trouble paying for medicines?: Yes Do you have trouble getting transportation to medical appointments?: No Do you have trouble paying your heating and electricity bill?: No Do you have trouble taking care of your child, family member or friend?: I choose not to answer this question Do you have trouble with day-to-day activities such as bathing, preparing meals, shopping, managing finances, etc.?: Yes Are you currently unemployed and looking for a job?: No Are you interested in more education?: No Please select the resources that you would like help with: None Currently or been in a relationship where the following occur: I choose not to answer THRIVE Score: 0 AUDIT C Alcohol Use Questionnaire (AUDIT-C) 1. How often do you have a drink containing alcohol?: Monthly or less 2. How many drinks containing alcohol do you have on a typical day when you are drinking?: 1 or 2 3. How often do you have six or more drinks on one occasion?: Never Total Score: 1 BRAXTON-7 AMB Questionnaire BRAXTON-7 Date BRAXTON - 7 assessed: 03/21/24 Source: Developed by Drs. Rg Joya, Carrie Hernandez, David Braswell and colleagues, with an educational michelle from [employer]. Physical exam (Primary Care) Tobacco/Smoking Status: Tobacco use Status Tobacco use date assessed 03/21/24 11/04/24 11:31 Patient Tobacco Use Status Never used Tobacco 11/04/24 11:31 e-Cigarette/Vaping Use Never Used 11/04/24 11:31 Thrive Assessment: Date of Thrive Assessment Date Thrive assessed 03/14/24 11/04/24 11:31 Currently or been in a relationship where the following occur: I choose not to answer Coding Level of Care Code Est Pt Level 4 (94709) Diagnoses Anxiety F41.9 Pure hypercholesterolemia E78.00 Hyperlipidemia type: pure hypercholesterolemia Rheumatoid arthritis involving multiple sites with positive rheumatoid factor M05.79 Rheumatoid arthritis location: multiple sites Rheumatoid factor presence: with rheumatoid factor Assessment & Plan Assessment & Plan (1) Anxiety: Code(s): F41.9 - Anxiety disorder, unspecified Category: Medical (2) Hyperlipidemia: Code(s): E78.5 - Hyperlipidemia, unspecified Category: Medical Qualifiers: Hyperlipidemia type: pure hypercholesterolemia Qualified Code(s): E78.0 0 - Pure hypercholesterolemia, unspecified (3) Rheumatoid arthritis: Code(s): M06.9 - Rheumatoid arthritis, unspecified Category: Medical Qualifiers: Rheumatoid arthritis location: multiple sites Rheumatoid factor presence: with rheumatoid factor Qualified Code(s): M05.79 - Rheumatoid arthritis with rheumatoid factor of multiple sites without organ or systems involvement Plan Anxiety-highly suggest restarting sertraline. Try to decrease job stress. Lorazepam sparing as needed Hypothyroid-controlled on levothyroxine Rash-start doxycycline, steroid topical Medications: New lorazepam 1 mg PO DAILY PRN 30 tabs 0RF anxiety/insomnia R21 - Rash and other nonspecific skin eruption triamcinolone acetonide 0.1% 1 appl topical BID 80 grams 1RF doxycycline monohydrate 100 mg PO BID 20 tabs 0RF
[2024-11-04 12:04] VITALS: BP 108/68; PULSE 93; RESP 12; O2SAT 99; BMI 22.3
--- OUTSIDE RECORDS SUMMARY | 2024-11-04 14:12 | XMS_ITS | Clinical Summary ---
Author Organization [facility] Address [address] [place] [address] Care Team Providers Care Hospital Scientist Name Role Phone Ivania Bello DO Primary Care Provider [phone] Medications acyclovir (ZOVIRAX) 400 mg tabletIndication s:Recurrent cold sores TAKE 1 TABLET BY MOUTH 3 TIMES A DAY 15 tablet 1 06/16/2022 Active spironolactone (ALDACTONE) 50 MG tabletIndication s:Hypertension, unspecified type TAKE 1 TABLET BY MOUTH EVERY DAY 30 tablet 1 08/07/2022 Active levothyroxine (SYNTHROID, LEVOTHROID) 112 MCG tabletIndication s:Hypothyroidism , unspecified type TAKE 1 TABLET BY MOUTH EVERY DAY 90 tablet 11/13/2022 Active Social History Tobacco Use Types Packs/Day Years Used Date Smoking Tobacco: Never Assessed Comments Unknown Sex and Gender Information Value Date Recorded Sex Assigned at Not on file Legal Sex Female 6:21 PM EST Gender Identity Not on file Sexual Orientation Not on file Plan of Treatment Health Maintenance Due Date Last Done Comments Hepatitis C Virus Screening 1965 HIV Screening 07/18/1976 DTaP/Tdap/Td Vaccines (1 - Tdap) 07/18/1982 Pneumococcal Vaccines 50+ (1 of 1 - PCV) 07/18/2013 Zoster (Shingles) Vaccine (1 of 2) 07/18/2013 COVID-19 Vaccine ( - 2023-2 5 season) 2024 RSV Vaccine 60 years and old er and Patients (1 - 1-dose 75+ series) 07/18/2038 Hepatitis B Vaccines Aged Out No long er eligible based on patient's age to complete this topic Care Teams Hospital Scientist Relationship Specialty Start Date End Date Ivania Bello DO 18 [facility] [address] [place] [address] [facility] - General
--- OUTSIDE RECORDS SUMMARY | 2024-11-04 14:12 | XMS_ITS | Encounter Summary ---
Author Organization [facility] Address [address] [place] [address] Care Team Providers Care Jewelry Salesperson Name Role Phone Ivania Bello DO Primary Care Provider [phone] Reason for Visit * Reason Comments Medication Refill Encounter Details Date Type Department Care Team (Late st Contact Info) Description 11/05/2022 Refill [facility] Department of Internal Medicine [address] [place] [phone] Ivania Bello DO [address] [place] [address] Hypertension, unspecified type Social History Tobacco Use [...] type documented in this encounter Care Teams Jewelry Salesperson Relationship Specialty Start Date End Date Ivania Bello DO [address] [place] [address] PCP - General documented as of this encounter
== END 2024-11-04 12:06 | disposition home or self-care (01) ==
LOC: HO.HMCFM 11:20
PROVIDERS: PCP Internal Medicine; Visit Provider Internal Medicine
DX: F41.9 Anxiety disorder, unspecified (principal); E78.00 Pure hypercholesterolemia, unspecified; M05.79 Rheumatoid arthritis with rheumatoid factor of multiple sites without organ or systems involvement